=== PATIENT | male | born 1960 | race African-American/Black ===

== ENCOUNTER 2018-05-20 23:21 | Emergency (ER) | payer MEDICAID, OTHER ==
[~2018-05-20] VITALS: Ht 167.6 cm; Wt 77.0 kg
[2018-05-20] MEDS ORDERED: SODIUM CHLORIDE 0.9% 1,000 ML IV ONE (23:47)
[2018-05-21 00:32] LABS: BASOPHILS % 0.1 % (0.0-2.0); EOSINOPHILS % 0.7 % (0.0-5.0); HEMOGLOBIN. 12.2 g/dL (14.0-18.0); LYMPHOCYTES % 25.7 % (20.0-50.0); MEAN CORPUSCULAR HEMOGLOBIN 30.9 pg (28.0-32.0); MEAN CORPUSCULAR VOLUME 89.1 fL (80.0-94.0); MONOCYTES % 2.3 % (2.0-8.0); NEUTROPHILS % 71.2 % (40.0-76.0); PLATELET 265 x1000/uL (130-400); RED BLOOD CELL COUNT 3.93 mill/uL (4.7-6.1)
[2018-05-21 00:40] LABS: CHLORIDE 95 mEq/L (98-107)
[2018-05-21 00:49] LABS: CREATINE KINASE 70 IU/L (39-308)
[2018-05-21 00:52] LABS: BETA HYDROXYBUTYRATE 0.9 mMol/L (0.0-0.3)
[2018-05-21] MEDS ORDERED: SODIUM CHLORIDE 0.9% 1000ML BAG (SEPSIS BOLUS) IV NR (01:00)
[2018-05-21 01:06] LABS: ETHANOL BLOOD 306 mg/dL
[2018-05-21 01:51] LABS: *AMPHETAMINES SCREEN URINE NEGATIVE (NEGATIVE); *BARBITURATES SCREEN URINE NEGATIVE (NEGATIVE); *BENZODIAZEPINES SCREEN URINE NEGATIVE (NEGATIVE); *COCAINE SCREEN URINE NEGATIVE (NEGATIVE); METHADONE URINE SCREEN NEGATIVE (NEGATIVE)
[2018-05-21 01:52] LABS: CANNABINOID URINE SCREEN NEGATIVE (NEGATIVE); OPIATES URINE SCREEN NEGATIVE (NEGATIVE); PHENCYCLIDINE URINE SCREEN NEGATIVE (NEGATIVE)
[2018-05-21 02:00] LABS: CLARITY URINE CLEAR (CLEAR); COLOR URINE YELLOW (YELLOW); KETONES URINE 1+ (NEGATIVE); LEUKOCYTE ESTERASE URINE NEGATIVE (NEGATIVE); NITRITE URINE NEGATIVE (NEGATIVE); OCCULT BLOOD URINE NEGATIVE (NEGATIVE); PH URINE 5.5 (4.5-8.0); PROTEIN URINE NEGATIVE (NEGATIVE); SPECIFIC GRAVITY URINE 1.014 (1.005-1.030); UROBILINOGEN URINE 0.2 E.U./dL (0.2-1.0)
[2018-05-21] MEDS ORDERED: SODIUM CHLORIDE 0.9% 1,000 ML IV ONE ×2 (04:00)
[2018-05-21 07:30] VITALS: BP 123/63
== END 2018-05-21 07:51 | disposition home or self-care (01) ==
LOC: ER 23:21
DX: F10.129 Alcohol abuse with intoxication, unspecified (principal); Y90.8 Blood alcohol level of 240 mg/100 ml or more; E11.65 Type 2 diabetes mellitus with hyperglycemia; E86.0 Dehydration; I10 Essential (primary) hypertension; R74.0 Nonspecific elevation of levels of transaminase and lactic acid dehydrogenase [LDH]
CPT/HCPCS: 36415; 70450; 71045; 80053; 80305; 81003; 82010; 82550; 83605; 85025; 87040; 87086; 93005; 96360; 96361; 99284; G0482; J7030

== ENCOUNTER 2018-05-28 09:59 | Inpatient (IN) | payer OTHER ==
[~2018-05-28] VITALS: Ht 165.1 cm; Wt 60.5 kg
[2018-05-28] VITALS (15 sets, daily range): BP systolic 120–154; BP diastolic 56–78
[2018-05-28] MEDS ORDERED: SODIUM CHLORIDE 0.9% 1,000 ML IV ONE ×2 (11:05→11:58)
[2018-05-28 11:27] LABS: CHLORIDE 71 mEq/L (98-107)
[2018-05-28 11:28] LABS: HEMATOCRIT. 30.8 % (42.0-52.0); HEMOGLOBIN. 9.7 g/dL (14.0-18.0); MEAN CORPUSCULAR HEMOGLOBIN 30.9 pg (28.0-32.0); MEAN CORPUSCULAR VOLUME 98.5 fL (80.0-94.0); PLATELET 207 x1000/uL (130-400); RED BLOOD CELL COUNT 3.13 mill/uL (4.7-6.1); RED CELL DISTRIBUTION WIDTH 14.4 % (11.6-14.6)
[2018-05-28 11:31] LABS: ETHANOL BLOOD < 10 mg/dL
[2018-05-28 12:00] LABS: BG BASE EXCESS -27.4 mmol/L (-2.0-2.0); BG CARBOXYHEMOGLOBIN 0.1 % (0.5-1.5); BG DEOXYHEMOGLOBIN 2.1 % (0.0-5.0); BG FRACTION INSPIRED OXYGEN 21; BG HCO3 ACT 2.9 mmol/L (22.0-26.0); BG METHEMOGLOBIN 0.1 % (0.0-1.5); BG OXYGEN SATURATION 97.9 % (92.0-98.5); BG OXYHEMOGLOBIN 97.7 % (94.0-97.0); BG PCO2 13.3 mmHg (35.0-45.0); BG PO2 152.9 mmHg (75.0-100.0); BG SAMPLE SITE RIGHT RADIAL; BG TOTAL HEMOGLOBIN 9.9 g/dL (12.0-18.0); BG VENT MODE ROOM AIR
[2018-05-28] MEDS ORDERED: SODIUM BICARBONATE 8.4% 1 MEQ/ML 50ML SYR IV ONE (12:00)
[2018-05-28] MEDS ORDERED: INSULIN REGULAR (DRIP) 100 UNITS in SODIUM CHLORIDE 0.9% 99 ML IV SCH ×3 (12:00→15:30)
[2018-05-28 12:04] LABS: PLATELET ESTIMATE NORMAL
[2018-05-28 12:18] LABS: BETA HYDROXYBUTYRATE 13.8 mMol/L (0.0-0.3)
[2018-05-28] MEDS ORDERED: PIPERACILLIN/TAZOBACTAM 3.375GM/50ML PREMIX IV ONE (13:00)
[2018-05-28] MEDS ORDERED: VANCOMYCIN 1 G PREMIX 200 ML IV SCH (13:00)
[2018-05-28] MEDS ORDERED: PIPERACILLIN/TAZ 3.375G PREMIX 50 ML IV ONE (13:15)
[2018-05-28] MEDS ORDERED: SODIUM CHLORIDE 0.9% 1,000 ML IV SCH (13:50)
[2018-05-28] MEDS ORDERED: ONDANSETRON HCL 4MG/2ML INJ IV PRN (14:00)
[2018-05-28] MEDS ORDERED: IPRATROPIUM/ALBUTEROL 0.5-3(2.5)MG/3ML NEB INH PRN (14:00)
[2018-05-28] MEDS ORDERED: INSULIN REGULAR (DRIP) 100 UNITS in SODIUM CHLORIDE 0.9% 100 ML IV SCH (14:00)
[2018-05-28 14:25] LABS: PHOSPHORUS 7.5 mg/dL (2.5-4.9)
[2018-05-28 15:14] LABS: CLARITY URINE CLEAR (CLEAR); COLOR URINE YELLOW (YELLOW); KETONES URINE 3+ (NEGATIVE); LEUKOCYTE ESTERASE URINE NEGATIVE (NEGATIVE); NITRITE URINE NEGATIVE (NEGATIVE); OCCULT BLOOD URINE 2+ (NEGATIVE); PROTEIN URINE TRACE (NEGATIVE); SPECIFIC GRAVITY URINE 1.019 (1.005-1.030); UROBILINOGEN URINE 0.2 E.U./dL (0.2-1.0)
[2018-05-28] MEDS ORDERED: DEXTROSE 50% WATER 50ML SYRINGE IV PRN (15:15)
[2018-05-28 15:36] LABS: METHADONE URINE SCREEN NEGATIVE (NEGATIVE); OPIATES URINE SCREEN NEGATIVE (NEGATIVE)
[2018-05-28 15:37] LABS: *AMPHETAMINES SCREEN URINE NEGATIVE (NEGATIVE); *BARBITURATES SCREEN URINE NEGATIVE (NEGATIVE); *BENZODIAZEPINES SCREEN URINE NEGATIVE (NEGATIVE); *COCAINE SCREEN URINE NEGATIVE (NEGATIVE); CANNABINOID URINE SCREEN NEGATIVE (NEGATIVE); PHENCYCLIDINE URINE SCREEN NEGATIVE (NEGATIVE)
[2018-05-28] MEDS: BLOOD SUGAR DIAGNOSTIC STRIP TEST SCH ×9 (16:00→23:57)
[2018-05-28] MEDS ORDERED: ENOXAPARIN 40MG/0.4ML SYR SUBCUT SCH (16:00)
[2018-05-28] MEDS ORDERED: FERR325T6 MT (20:00)
[2018-05-28] MEDS ORDERED: AM500 MT (20:00)
[2018-05-28] MEDS ORDERED: PANTOPRAZOLE SODIUM 40 MG/VIAL IV NR (20:00)
[2018-05-28] MEDS ORDERED: METF-416 MT (20:00)
[2018-05-28] MEDS ORDERED: HYDR10TA34 MT (20:00)
[2018-05-28] MEDS ORDERED: LISI-186 MT (20:00)
[2018-05-28] MEDS ORDERED: DOCU-150 MT (20:00)
[2018-05-28] MEDS ORDERED: DEXT 5%/0.9% NACL 1,000 ML IV SCH (20:00)
[2018-05-28] MEDS ORDERED: NAPR-681 MT (20:00)
[2018-05-28] MEDS ORDERED: HYDR12.529 MT (20:00)
[2018-05-28 21:03] LABS: CHLORIDE 98 mEq/L (98-107)
[2018-05-28 21:11] LABS: CREATINE KINASE 195 IU/L (39-308)
[2018-05-28 21:16] LABS: CREATINE KINASE MB FRACTION 7.9 ng/mL (0.5-3.6)
[2018-05-28] MEDS ORDERED: POTASSIUM CHLORIDE INJ 40 MEQ in DEXT 5% WATER 250 ML IV NR (22:00)
[2018-05-28] MEDS ORDERED: THIAMINE HCL 100 MG, FOLIC ACID 1 MG, MVI, ADULT NO.1 10 ML in DEXT 5%/0.9% NACL 1,000 ML IV SCH ×4 (22:00)
[2018-05-29] VITALS (29 sets, daily range): BP systolic 108–158; BP diastolic 50–82
[2018-05-29 00:59] LABS: CHLORIDE 103 mEq/L (98-107)
[2018-05-29] MEDS: BLOOD SUGAR DIAGNOSTIC STRIP TEST SCH ×11 (01:00→23:46)
[2018-05-29 01:01] LABS: CREATINE KINASE MB FRACTION 5.7 ng/mL (0.5-3.6)
[2018-05-29] MEDS: DEXTROSE 50% WATER 50ML SYRINGE IV PRN ×2 (04:04→05:56)
[2018-05-29] MEDS ORDERED: POTASSIUM CHLORIDE INJ 20 MEQ in DEXT 5%/0.9% NACL 1,000 ML IV SCH (05:00)
[2018-05-29] MEDS ORDERED: DEXT 5%/0.45% NACL KCL 20MEQ/L 1,000 ML IV SCH (05:00)
[2018-05-29 05:15] LABS: MEAN CORPUSCULAR VOLUME 84.3 fL (80.0-94.0); MEAN PLATELET VOLUME 6.9 fl (7.4-10.4); PLATELET 141 x1000/uL (130-400); RED BLOOD CELL COUNT 2.33 mill/uL (4.7-6.1); RED CELL DISTRIBUTION WIDTH 14.2 % (11.6-14.6)
[2018-05-29 05:33] LABS: CHLORIDE 107 mEq/L (98-107)
[2018-05-29 05:43] LABS: LDL CHOLESTEROL 27 mg/dL (5-100)
[2018-05-29 05:44] LABS: HDL CHOLESTEROL 65 mg/dL (40-59)
[2018-05-29 06:00] LABS: PHOSPHORUS 0.3 mg/dL (2.5-4.9)
[2018-05-29 07:24] LABS: MEAN CORPUSCULAR HEMOGLOBIN 30.3 pg (28.0-32.0)
[2018-05-29 07:30] LABS: HEMATOCRIT. 19.6 % (42.0-52.0)
[2018-05-29] MEDS ORDERED: POTASSIUM PHOS,M-BASIC-D-BASIC 30 MMOL in SODIUM CHLORIDE 0.9% 500 ML IV SCH ×2 (07:30→19:30)
[2018-05-29] MEDS ORDERED: DEXTROSE 50% WATER 50ML SYRINGE IV PRN (07:45)
[2018-05-29 08:45] LABS: CHLORIDE 107 mEq/L (98-107)
[2018-05-29] MEDS ORDERED: INSULIN GLARGINE UD 100 UNITS/ML SYR SUBCUT SCH (10:00)
[2018-05-29 10:10] LABS: PLATELET ESTIMATE NORMAL
[2018-05-29] MEDS: PANTOPRAZOLE SODIUM 40 MG/VIAL IV SCH (10:10)
[2018-05-29] MEDS ORDERED: POTASSIUM CHLORIDE 20MEQ TABLET SR PO SCH ×3 (11:15→19:30)
[2018-05-29] MEDS: INSULIN LISPRO 100 UNITS/ML SUBCUT SCH ×4 (12:01→23:47)
[2018-05-29] MEDS ORDERED: CLONIDINE 0.1MG TABLET PO PRN (13:00)
[2018-05-29 16:27] LABS: PHOSPHORUS 0.6 mg/dL (2.5-4.9)
[2018-05-29 16:36] LABS: HEMATOCRIT 20.3 % (42.0-52.0); HEMOGLOBIN 7.4 g/dL (14.0-18.0)
[2018-05-29] MEDS ORDERED: THIAMINE HCL 100MG TABLET PO NR (17:00)
[2018-05-29] MEDS: FERROUS SULFATE 325MG TABLET PO SCH (17:16)
[2018-05-29] MEDS: MULTIVITAMINS,THER W-MINERALS TABLET PO SCH (17:16)
[2018-05-29] MEDS: DOCUSATE SODIUM 100MG CAPSULE PO SCH (17:16)
[2018-05-29] MEDS: FOLIC ACID 1MG TABLET PO SCH (17:17)
[2018-05-29] MEDS ORDERED: POTASSIUM PHOS,M-BASIC-D-BASIC 30 MMOL in DEXT 5% WATER 500 ML IV ONE (19:30)
[2018-05-30] VITALS (10 sets, daily range): BP systolic 106–130; BP diastolic 51–67
[2018-05-30] MEDS: BLOOD SUGAR DIAGNOSTIC STRIP TEST SCH ×5 (03:49→20:14)
[2018-05-30] MEDS: INSULIN LISPRO 100 UNITS/ML SUBCUT SCH ×5 (03:51→20:31)
[2018-05-30 06:56] LABS: CHLORIDE 107 mEq/L (98-107)
[2018-05-30 07:02] LABS: PHOSPHORUS 1.1 mg/dL (2.5-4.9)
[2018-05-30] MEDS: THIAMINE HCL 100MG TABLET PO SCH (08:06)
[2018-05-30] MEDS: MULTIVITAMINS,THER W-MINERALS TABLET PO SCH (08:06)
[2018-05-30] MEDS: DOCUSATE SODIUM 100MG CAPSULE PO SCH ×2 (08:06→16:54)
[2018-05-30] MEDS: FOLIC ACID 1MG TABLET PO SCH (08:06)
[2018-05-30] MEDS: FERROUS SULFATE 325MG TABLET PO SCH ×3 (08:06→16:54)
[2018-05-30] MEDS: PANTOPRAZOLE SODIUM 40 MG/VIAL IV SCH ×2 (08:07→20:26)
[2018-05-30 08:25] LABS: MEAN CORPUSCULAR HEMOGLOBIN 30.8 pg (28.0-32.0); MEAN CORPUSCULAR VOLUME 84.6 fL (80.0-94.0); MEAN PLATELET VOLUME 7.3 fl (7.4-10.4); PLATELET 135 x1000/uL (130-400); RED BLOOD CELL COUNT 2.22 mill/uL (4.7-6.1); RED CELL DISTRIBUTION WIDTH 15.1 % (11.6-14.6)
[2018-05-30 08:39] LABS: HEMOGLOBIN. 6.8 g/dL (14.0-18.0)
[2018-05-30 08:40] LABS: HEMATOCRIT. 18.8 % (42.0-52.0)
[2018-05-30] MEDS: INSULIN GLARGINE UD 100 UNITS/ML SYR SUBCUT SCH ×2 (09:25→21:53)
[2018-05-30] MEDS ORDERED: POTASSIUM PHOS,M-BASIC-D-BASIC 30 MMOL in DEXT 5% WATER 500 ML IV NR (09:30)
[2018-05-30 16:05] LABS: PLATELET ESTIMATE NORMAL
[2018-05-30 23:38] LABS: HEMATOCRIT 21.1 % (42.0-52.0); HEMOGLOBIN 7.4 g/dL (14.0-18.0)
[2018-05-30 23:55] LABS: PHOSPHORUS 2.7 mg/dL (2.5-4.9)
[2018-05-31] VITALS (7 sets, daily range): BP systolic 110–116; BP diastolic 51–67
[2018-05-31] MEDS: LORAZEPAM 2MG/ML CPJ IV PRN ×2 (00:27→23:21)
[2018-05-31] MEDS: BLOOD SUGAR DIAGNOSTIC STRIP TEST SCH ×7 (00:33→23:23)
[2018-05-31] MEDS: INSULIN LISPRO 100 UNITS/ML SUBCUT SCH ×7 (04:00→23:33)
[2018-05-31 06:42] LABS: BASOPHILS % 0.1 % (0.0-2.0); EOSINOPHILS % 0.4 % (0.0-5.0); HEMOGLOBIN. 7.4 g/dL (14.0-18.0); LYMPHOCYTES % 9.5 % (20.0-50.0); MEAN CORPUSCULAR HEMOGLOBIN 30.8 pg (28.0-32.0); MEAN CORPUSCULAR VOLUME 85.6 fL (80.0-94.0); MEAN PLATELET VOLUME 7.3 fl (7.4-10.4); PLATELET 176 x1000/uL (130-400); RED BLOOD CELL COUNT 2.41 mill/uL (4.7-6.1); RED CELL DISTRIBUTION WIDTH 14.7 % (11.6-14.6)
[2018-05-31] MEDS: FERROUS SULFATE 325MG TABLET PO SCH ×3 (07:40→18:24)
[2018-05-31 07:46] LABS: HEMATOCRIT. 20.7 % (42.0-52.0)
[2018-05-31 08:13] LABS: CHLORIDE 104 mEq/L (98-107)
[2018-05-31] MEDS: DOCUSATE SODIUM 100MG CAPSULE PO SCH ×2 (09:00→18:24)
[2018-05-31] MEDS: MULTIVITAMINS,THER W-MINERALS TABLET PO SCH (09:00)
[2018-05-31] MEDS: FOLIC ACID 1MG TABLET PO SCH (09:00)
[2018-05-31] MEDS: THIAMINE HCL 100MG TABLET PO SCH (09:00)
[2018-05-31] MEDS: PANTOPRAZOLE SODIUM 40 MG/VIAL IV SCH ×2 (09:00→20:02)
[2018-05-31] MEDS: INSULIN GLARGINE UD 100 UNITS/ML SYR SUBCUT SCH ×2 (09:50→21:08)
[2018-05-31] MEDS ORDERED: POTASSIUM CHLORIDE INJ 40 MEQ in DEXT 5% WATER 250 ML IV NR ×2 (12:00→16:00)
[2018-05-31 15:30] LABS: CLARITY URINE CLEAR (CLEAR); COLOR URINE YELLOW (YELLOW); KETONES URINE TRACE (NEGATIVE); LEUKOCYTE ESTERASE URINE 1+ (NEGATIVE); NITRITE URINE POSITIVE (NEGATIVE); OCCULT BLOOD URINE 1+ (NEGATIVE); PH URINE 6.5 (4.5-8.0); PROTEIN URINE NEGATIVE (NEGATIVE); SPECIFIC GRAVITY URINE 1.013 (1.005-1.030); UROBILINOGEN URINE 0.2 E.U./dL (0.2-1.0)
[2018-05-31 15:47] LABS: HEMATOCRIT 21.2 % (42.0-52.0); HEMOGLOBIN 7.6 g/dL (14.0-18.0)
[2018-05-31] MEDS ORDERED: DIPHENHYDRAMINE 50MG/ML VIAL ONE (16:04)
[2018-05-31] MEDS ORDERED: MIDAZOLAM HCL 2 MG/2 ML VIAL ONE (16:04)
[2018-05-31] MEDS ORDERED: PROPOFOL 200MG/20ML VIAL IV ONE (16:04)
[2018-05-31] MEDS ORDERED: FENTANYL CITRATE/PF 50MCG/ML 2ML VIAL ONE (16:04)
[2018-05-31] MEDS ORDERED: SIMETHICONE 40 MG/0.6 ML 30ML ONE (16:06)
[2018-05-31] MEDS ORDERED: OMEPRAZOLE 20MG CAPSULE EXTENDED RELEASE PO NR (16:30)
[2018-05-31] MEDS: CEFTRIAXONE 1,000 MG in DEXTROSE 5% WATER 50 ML IV SCH (18:27)
[2018-06-01] VITALS: BP 121/62
[2018-06-01 04:00] VITALS: BP 105/65
[2018-06-01] MEDS: BLOOD SUGAR DIAGNOSTIC STRIP TEST SCH ×5 (04:00→20:37)
[2018-06-01] MEDS: INSULIN LISPRO 100 UNITS/ML SUBCUT SCH ×5 (04:00→20:00)
[2018-06-01] MEDS: OMEPRAZOLE 20MG CAPSULE EXTENDED RELEASE PO SCH (06:46)
[2018-06-01 06:50] LABS: BASOPHILS % 0.2 % (0.0-2.0); EOSINOPHILS % 0.5 % (0.0-5.0); HEMATOCRIT. 22.8 % (42.0-52.0); HEMOGLOBIN. 8.1 g/dL (14.0-18.0); LYMPHOCYTES % 13.4 % (20.0-50.0); MEAN CORPUSCULAR HEMOGLOBIN 30.7 pg (28.0-32.0); MEAN CORPUSCULAR VOLUME 86.8 fL (80.0-94.0); MEAN PLATELET VOLUME 6.9 fl (7.4-10.4); MONOCYTES % 14.4 % (2.0-8.0); NEUTROPHILS % 71.5 % (40.0-76.0); PLATELET 259 x1000/uL (130-400); RED BLOOD CELL COUNT 2.63 mill/uL (4.7-6.1); RED CELL DISTRIBUTION WIDTH 14.5 % (11.6-14.6)
[2018-06-01 07:11] LABS: CHLORIDE 103 mEq/L (98-107)
[2018-06-01 08:00] VITALS: BP 103/50
[2018-06-01] MEDS: INSULIN GLARGINE UD 100 UNITS/ML SYR SUBCUT SCH ×2 (09:05→22:53)
[2018-06-01] MEDS: DOCUSATE SODIUM 100MG CAPSULE PO SCH ×2 (09:06→18:05)
[2018-06-01] MEDS: FERROUS SULFATE 325MG TABLET PO SCH ×3 (09:06→18:05)
[2018-06-01] MEDS: FOLIC ACID 1MG TABLET PO SCH (09:06)
[2018-06-01] MEDS: MULTIVITAMINS,THER W-MINERALS TABLET PO SCH (09:06)
[2018-06-01] MEDS: THIAMINE HCL 100MG TABLET PO SCH (09:06)
[2018-06-01] MEDS: PANTOPRAZOLE SODIUM 40 MG/VIAL IV SCH (09:06)
[2018-06-01 12:00] VITALS: BP 105/57
[2018-06-01] MEDS ORDERED: LEVO500T89 MT (14:16)
[2018-06-01] MEDS ORDERED: LANTUSUD SUBCUT (14:16)
[2018-06-01] MEDS ORDERED: THIA100T72 PO (14:16)
[2018-06-01] MEDS ORDERED: OMEP20CA10 PO (14:16)
[2018-06-01] MEDS ORDERED: FOLI-43 PO (14:16)
[2018-06-01 16:00] VITALS: BP 115/67
[2018-06-01] MEDS: CEFTRIAXONE 1,000 MG in DEXTROSE 5% WATER 50 ML IV SCH (18:06)
[2018-06-01 20:00] VITALS: BP 122/57
[2018-06-02] VITALS: BP 110/51
[2018-06-02] MEDS: LORAZEPAM 2MG/ML CPJ IV PRN (01:53)
[2018-06-02 04:00] VITALS: BP 116/80
[2018-06-02] MEDS: BLOOD SUGAR DIAGNOSTIC STRIP TEST SCH ×2 (04:00)
[2018-06-02] MEDS: OMEPRAZOLE 20MG CAPSULE EXTENDED RELEASE PO SCH (06:49)
[2018-06-02] MEDS: INSULIN LISPRO 100 UNITS/ML SUBCUT SCH ×2 (06:58)
[2018-06-02 08:00] VITALS: BP 110/55
== END 2018-06-02 09:13 | disposition home or self-care (01) | DRG 720 ==
LOC: ER 09:59 → MICUNO 12:30 → EDBEDREQSVC 12:34 → EDBEDREQTM 12:34 → EDBEDREQ 12:34 → ENRESERV 13:59 → 8WST 05-29 16:12
PROVIDERS: ADMIT Internal Medicine; ATTEND Internal Medicine
PROC: 30233N1 Transfusion of Nonautologous Red Blood Cells into Peripheral Vein, Percutaneous Approach (ICD-10-PCS; 2018-05-30)
PROC: 0DB58ZX Excision of Esophagus, Via Natural or Artificial Opening Endoscopic, Diagnostic (ICD-10-PCS; principal; 2018-05-31)
PROC: 0DB68ZX Excision of Stomach, Via Natural or Artificial Opening Endoscopic, Diagnostic (ICD-10-PCS; 2018-05-31)
DX: A41.9 Sepsis, unspecified organism (principal); E11.10 Type 2 diabetes mellitus with ketoacidosis without coma; K22.11 Ulcer of esophagus with bleeding; K85.20 Alcohol induced acute pancreatitis without necrosis or infection; D62 Acute posthemorrhagic anemia; E44.1 Mild protein-calorie malnutrition; E87.1 Hypo-osmolality and hyponatremia; E87.8 Other disorders of electrolyte and fluid balance, not elsewhere classified; I48.92 Unspecified atrial flutter; F10.239 Alcohol dependence with withdrawal, unspecified; D53.9 Nutritional anemia, unspecified; E87.6 Hypokalemia; R39.2 Extrarenal uremia; E86.9 Volume depletion, unspecified; F17.210 Nicotine dependence, cigarettes, uncomplicated; I10 Essential (primary) hypertension; K29.80 Duodenitis without bleeding; N39.0 Urinary tract infection, site not specified; Z68.22 Body mass index [BMI] 22.0-22.9, adult
CPT/HCPCS: 36415; 36600; 71045; 76700; 80048; 80061; 80305; 82010; 82270; 82375; 82550; 82553; 82805; 82962; 83036; 83540; 83550; 83605; 83735; 84100; 84132; 84145; 84443; 84484; 85014; 85018; 85044; 86850; 86900; 86920; 88305; 88312; 88313; 93005; 93306; 93970; 96361; 96365; 96375; 99291; A6261; C1893; C9113; G0482; J0696; J1200; J1650; J1815; J2060; J2250; J2543; J2704; J3010; J3370; J3411; J3480; J3490; J7030; J7040; J7042; J7050; J7060; P9016; A4315

== ENCOUNTER 2018-07-21 17:30 | Emergency (ER) | payer OTHER ==
[~2018-07-21] VITALS: Ht 172.7 cm; Wt 88.0 kg
[~2018-07-21 17:30] MED LIST: DOCU-150 MT; FERR325T6 MT; FOLI-43 PO; HYDR10TA34 MT; LANTUSUD SUBCUT; LEVO500T89 MT; OMEP20CA10 PO; THIA100T72 PO
[2018-07-22 01:08] LABS: BASOPHILS % 0.6 % (0.0-2.0); EOSINOPHILS % 0.5 % (0.0-5.0); HEMATOCRIT. 25.5 % (42.0-52.0); HEMOGLOBIN. 8.6 g/dL (14.0-18.0); LYMPHOCYTES % 10.3 % (20.0-50.0); MEAN CORPUSCULAR HEMOGLOBIN 27.7 pg (28.0-32.0); MEAN CORPUSCULAR VOLUME 82.6 fL (80.0-94.0); MEAN PLATELET VOLUME 6.7 fl (7.4-10.4); MONOCYTES % 5.4 % (2.0-8.0); NEUTROPHILS % 83.2 % (40.0-76.0); PLATELET 732 x1000/uL (130-400); RED BLOOD CELL COUNT 3.09 mill/uL (4.7-6.1)
[2018-07-22 01:14] LABS: CHLORIDE 92 mEq/L (98-107)
[2018-07-22 01:19] LABS: D-DIMER 0.78 mg/L FEU (<0.50); PARTIAL THROMBOPLASTIN TIME 25.7 sec (23.4-31.0); PROTHROMBIN TIME 10.3 sec (9.1-11.1)
[2018-07-22 01:26] LABS: BETA HYDROXYBUTYRATE 0.1 mMol/L (0.0-0.3)
[2018-07-22] MEDS ORDERED: CALCIUM CHLORIDE 1GM/10ML SYR IV SCH (02:00)
[2018-07-22] MEDS ORDERED: INSULIN REGULAR (HUMULIN R) 300UNITS/3ML IV SCH (02:00)
[2018-07-22] MEDS ORDERED: SODIUM BICARBONATE 8.4% 1 MEQ/ML 50ML SYR IV SCH (02:00)
[2018-07-22] MEDS ORDERED: SODIUM CHLORIDE 0.9% 1000ML BAG (SEPSIS BOLUS) IV ONE (02:15)
[2018-07-22] MEDS ORDERED: IOHEXOL-350 100 ML BOTTLE ONE (04:07)
[2018-07-22 06:42] VITALS: BP 148/82
== END 2018-07-22 06:45 | disposition home or self-care (01) ==
LOC: ER 17:30
DX: C34.90 Malignant neoplasm of unspecified part of unspecified bronchus or lung (principal); E11.9 Type 2 diabetes mellitus without complications; I10 Essential (primary) hypertension; Z79.4 Long term (current) use of insulin; Z79.899 Other long term (current) drug therapy
CPT/HCPCS: 36415; 71045; 71275; 80053; 82010; 82962; 84132; 84439; 84443; 85025; 85379; 85610; 85730; 93005; 96361; 96374; 96375; 99291; J1815; J3490; J7030; Q9967

== ENCOUNTER 2021-12-31 19:02 | Inpatient (IN) | payer OTHER ==
[~2021-12-31] VITALS: Ht 165.1 cm; Wt 64.4 kg
[~2021-12-31 19:02] MED LIST changes: +CALC667C MT; +CARV25TA47 PO; +DILT60TA35 PO; -FERR325T6 MT; +FERR325T6 PO; -LEVO500T89 MT; -OMEP20CA10 PO; +SUCR1TAB30 PO; +TAMS-11 PO
[2021-12-31] MEDS ORDERED: ONDANSETRON HCL 4MG/2ML INJ IV STA (19:32)
[2021-12-31] MEDS ORDERED: SODIUM CHLORIDE 0.9% 1,000 ML IV ONE (19:45)
[2021-12-31 20:01] LABS: HEMATOCRIT. 31.4 % (42.0-52.0); HEMOGLOBIN. 10.5 g/dL (14.0-18.0); MEAN CORPUSCULAR HEMOGLOBIN 32.9 pg (28.0-32.0); MEAN CORPUSCULAR VOLUME 98.6 fL (80.0-94.0); PLATELET 150 x1000/uL (130-400); RED BLOOD CELL COUNT 3.19 mill/uL (4.7-6.1); RED CELL DISTRIBUTION WIDTH 14.4 % (11.6-14.6)
[2021-12-31 20:11] LABS: INR 1.1; PROTHROMBIN TIME 11.5 sec (9.6-11.0)
[2021-12-31 20:12] LABS: CHLORIDE 81 mEq/L (98-107)
[2021-12-31 20:20] LABS: ETHANOL BLOOD < 10 mg/dL
[2021-12-31 21:53] LABS: PLATELET ESTIMATE NORMAL
[2021-12-31] MEDS: ONDANSETRON HCL 4MG/2ML INJ IV NR (22:58)
[2021-12-31 23:06] LABS: CLARITY URINE CLEAR (CLEAR); COLOR URINE YELLOW (YELLOW); KETONES URINE 1+ (NEGATIVE); LEUKOCYTE ESTERASE URINE TRACE (NEGATIVE); NITRITE URINE NEGATIVE (NEGATIVE); OCCULT BLOOD URINE NEGATIVE (NEGATIVE); PH URINE 5.5 (4.5-8.0); PROTEIN URINE 1+ (NEGATIVE); SPECIFIC GRAVITY URINE 1.015 (1.005-1.030); UROBILINOGEN URINE 0.2 E.U./dL (0.2-1.0)
[2021-12-31 23:23] LABS: *AMPHETAMINES SCREEN URINE NEGATIVE (NEGATIVE); *BARBITURATES SCREEN URINE NEGATIVE (NEGATIVE); *BENZODIAZEPINES SCREEN URINE NEGATIVE (NEGATIVE); *COCAINE SCREEN URINE NEGATIVE (NEGATIVE); CANNABINOID URINE SCREEN NEGATIVE (NEGATIVE); METHADONE URINE SCREEN NEGATIVE (NEGATIVE); OPIATES URINE SCREEN NEGATIVE (NEGATIVE); PHENCYCLIDINE URINE SCREEN NEGATIVE (NEGATIVE)
[2022-01-01] VITALS (9 sets, daily range): BP systolic 124–146; BP diastolic 61–87
[2022-01-01] MEDS ORDERED: PANTOPRAZOLE SODIUM 40 MG/VIAL IV ONE (00:30)
[2022-01-01 00:45] LABS: HEMATOCRIT 29.2 % (42.0-52.0); HEMOGLOBIN 9.8 g/dL (14.0-18.0); MEAN CORPUSCULAR HEMOGLOBIN 33.3 pg (28.0-32.0); MEAN CORPUSCULAR VOLUME 98.9 fL (80.0-94.0); PLATELET 136 x1000/uL (130-400); RED BLOOD CELL COUNT 2.95 mill/uL (4.7-6.1); RED CELL DISTRIBUTION WIDTH 14.4 % (11.6-14.6)
[2022-01-01] MEDS: ONDANSETRON HCL 4MG/2ML INJ IV NR (02:33)
[2022-01-01] MEDS ORDERED: GUAIFENESIN 200MG/10ML SUGAR FREE UDC PO PRN (08:45)
[2022-01-01] MEDS ORDERED: DIPHENHYDRAMINE 50MG/ML VIAL IV PRN (08:45)
[2022-01-01] MEDS ORDERED: CLONIDINE 0.1MG TABLET PO PRN (08:45)
[2022-01-01] MEDS ORDERED: HYDROCODONE/ACETAMINOPHEN 5/325MG TABLET PO PRN (08:45)
[2022-01-01] MEDS ORDERED: ONDANSETRON HCL 4MG/2ML INJ IV PRN (08:45)
[2022-01-01] MEDS ORDERED: MAGNESIUM/ALUMINUM HYDROXIDE/SIMETHICONE 30ML UDC PO PRN (08:45)
[2022-01-01] MEDS ORDERED: IPRATROPIUM/ALBUTEROL 0.5-3(2.5)MG/3ML NEB NEB PRN (08:45)
[2022-01-01] MEDS ORDERED: NA PHOS,M-B/NA PHOS,DI-BA ENEMA 118ML PR PRN (08:45)
[2022-01-01] MEDS ORDERED: MORPHINE SULFATE 2 MG/ML CPJ (NOT FOR IM USE) IV PRN (08:45)
[2022-01-01] MEDS ORDERED: DOCUSATE SODIUM 100MG CAPSULE PO PRN (08:45)
[2022-01-01] MEDS ORDERED: AMIODARONE HCL 900 MG in DEXT 5% WATER 482 ML IV SCH (09:30)
[2022-01-01] MEDS ORDERED: NALOXONE HCL 0.4MG/ML VIAL IV PRN (09:30)
[2022-01-01] MEDS: AMIODARONE HCL 900 MG in DEXT 5% WATER 482 ML IV SCH (10:00)
[2022-01-01] MEDS ORDERED: DEXTROSE 50% WATER 50ML SYRINGE IV PRN (11:30)
[2022-01-01] MEDS: BLOOD SUGAR DIAGNOSTIC STRIP TEST SCH ×4 (11:51→21:00)
[2022-01-01] MEDS ORDERED: OCTREOTIDE 1,000 MCG in SODIUM CHLORIDE 0.9% 100 ML IV ONE (12:30)
[2022-01-01] MEDS: SUCRALFATE 1 G/10 ML UDC PO SCH ×4 (12:30→20:22)
[2022-01-01] MEDS: INSULIN LISPRO 100 UNITS/ML SUBCUT SCH ×4 (13:00→22:27)
[2022-01-01 15:19] LABS: HEMATOCRIT 33.1 % (42.0-52.0); HEMOGLOBIN 11.1 g/dL (14.0-18.0)
[2022-01-01 15:53] LABS: HEPATITIS B SURFACE ANTIGEN NEGATIVE
[2022-01-01 15:56] LABS: CREATINE KINASE 177 IU/L (39-308); CREATINE KINASE MB FRACTION 1.6 ng/mL (0.5-3.6)
[2022-01-01 15:59] LABS: T4 FREE 1.39 ng/dL (0.76-1.46)
[2022-01-01] MEDS: PANTOPRAZOLE SODIUM 40 MG/VIAL IV SCH (17:24)
[2022-01-01 20:03] LABS: HEMATOCRIT 29.8 % (42.0-52.0); HEMOGLOBIN 9.6 g/dL (14.0-18.0)
[2022-01-02] VITALS (12 sets, daily range): BP systolic 107–166; BP diastolic 49–82
[2022-01-02 00:25] LABS: CREATINE KINASE MB FRACTION 1.4 ng/mL (0.5-3.6)
[2022-01-02 01:02] LABS: HEMATOCRIT 29.2 % (42.0-52.0); HEMOGLOBIN 9.9 g/dL (14.0-18.0)
[2022-01-02 05:38] LABS: CHLORIDE 91 mEq/L (98-107)
[2022-01-02 05:46] LABS: CREATINE KINASE 125 IU/L (39-308); CREATINE KINASE MB FRACTION < 1.0 ng/mL (0.5-3.6)
[2022-01-02 06:18] LABS: BASOPHILS % 0.1 % (0.0-2.0); EOSINOPHILS % 0.7 % (0.0-5.0); HEMATOCRIT. 32.4 % (42.0-52.0); HEMOGLOBIN. 10.8 g/dL (14.0-18.0); LYMPHOCYTES % 10.7 % (20.0-50.0); MEAN CORPUSCULAR HEMOGLOBIN 33.9 pg (28.0-32.0); MEAN CORPUSCULAR VOLUME 101.8 fL (80.0-94.0); MEAN PLATELET VOLUME 7.9 fl (7.4-10.4); MONOCYTES % 6.3 % (2.0-8.0); NEUTROPHILS % 82.2 % (40.0-76.0); PLATELET 121 x1000/uL (130-400); RED BLOOD CELL COUNT 3.18 mill/uL (4.7-6.1); RED CELL DISTRIBUTION WIDTH 14.5 % (11.6-14.6)
[2022-01-02] MEDS: BLOOD SUGAR DIAGNOSTIC STRIP TEST SCH ×4 (06:43→20:58)
[2022-01-02] MEDS ORDERED: LIDOCAINE HCL 1% 10 MG/ML 10ML VIAL ONE (09:30)
[2022-01-02] MEDS: PANTOPRAZOLE SODIUM 40 MG/VIAL IV SCH ×2 (10:06→18:09)
[2022-01-02] MEDS: SUCRALFATE 1 G/10 ML UDC PO SCH ×4 (10:06→21:58)
[2022-01-02] MEDS: INSULIN LISPRO 100 UNITS/ML SUBCUT SCH ×4 (10:08→22:00)
[2022-01-02] MEDS ORDERED: POTASSIUM CHLORIDE 20MEQ TABLET SR PO NR (12:15)
[2022-01-02] MEDS: AMIODARONE HCL 900 MG in DEXT 5% WATER 482 ML IV SCH (12:56)
[2022-01-02 13:06] LABS: HEMATOCRIT 29.4 % (42.0-52.0); HEMOGLOBIN 10.1 g/dL (14.0-18.0)
[2022-01-02 19:26] LABS: HEMATOCRIT 30.3 % (42.0-52.0); HEMOGLOBIN 10.2 g/dL (14.0-18.0)
[2022-01-02] MEDS: AMIODARONE HCL 200 MG TABLET PO SCH (21:58)
[2022-01-03] VITALS (12 sets, daily range): BP systolic 124–150; BP diastolic 62–75
[2022-01-03 01:24] LABS: HEMATOCRIT 27.5 % (42.0-52.0); HEMOGLOBIN 9.2 g/dL (14.0-18.0)
[2022-01-03 06:37] LABS: BASOPHILS % 0.1 % (0.0-2.0); EOSINOPHILS % 1.4 % (0.0-5.0); HEMATOCRIT. 27.3 % (42.0-52.0); HEMOGLOBIN. 9.3 g/dL (14.0-18.0); LYMPHOCYTES % 17.9 % (20.0-50.0); MEAN CORPUSCULAR HEMOGLOBIN 33.3 pg (28.0-32.0); MEAN CORPUSCULAR VOLUME 97.6 fL (80.0-94.0); MEAN PLATELET VOLUME 7.6 fl (7.4-10.4); MONOCYTES % 7.8 % (2.0-8.0); NEUTROPHILS % 72.8 % (40.0-76.0); PLATELET 105 x1000/uL (130-400); RED CELL DISTRIBUTION WIDTH 13.7 % (11.6-14.6)
[2022-01-03 06:38] LABS: INR 1.1; PROTHROMBIN TIME 11.4 sec (9.6-11.0)
[2022-01-03 06:39] LABS: CHLORIDE 94 mEq/L (98-107)
[2022-01-03] MEDS: BLOOD SUGAR DIAGNOSTIC STRIP TEST SCH ×4 (06:53→21:20)
[2022-01-03] MEDS: SUCRALFATE 1 G/10 ML UDC PO SCH ×4 (08:53→21:20)
[2022-01-03] MEDS: INSULIN LISPRO 100 UNITS/ML SUBCUT SCH ×4 (08:54→21:35)
[2022-01-03] MEDS: PANTOPRAZOLE SODIUM 40 MG/VIAL IV SCH ×2 (08:54→17:21)
[2022-01-03] MEDS: AMIODARONE HCL 200 MG TABLET PO SCH ×2 (08:54→21:20)
[2022-01-03 12:31] LABS: HEMATOCRIT 30.2 % (42.0-52.0); HEMOGLOBIN 10.2 g/dL (14.0-18.0)
[2022-01-03] MEDS ORDERED: EPOETIN ALFA-EPBX 10,000 UNIT/ML VIAL SUBCUT SCH (21:00)
[2022-01-03 23:54] LABS: HEMATOCRIT 27.8 % (42.0-52.0); HEMOGLOBIN 9.5 g/dL (14.0-18.0)
[2022-01-04] VITALS (9 sets, daily range): BP systolic 124–156; BP diastolic 64–73
[2022-01-04] MEDS: SUCRALFATE 1 G/10 ML UDC PO SCH ×3 (07:08→17:37)
[2022-01-04 07:19] LABS: BASOPHILS % 0.3 % (0.0-2.0); EOSINOPHILS % 3.2 % (0.0-5.0); HEMATOCRIT. 27.8 % (42.0-52.0); HEMOGLOBIN. 9.6 g/dL (14.0-18.0); LYMPHOCYTES % 16.7 % (20.0-50.0); MEAN CORPUSCULAR HEMOGLOBIN 33.6 pg (28.0-32.0); MEAN CORPUSCULAR VOLUME 97.4 fL (80.0-94.0); MONOCYTES % 9.4 % (2.0-8.0); NEUTROPHILS % 70.4 % (40.0-76.0); RED BLOOD CELL COUNT 2.85 mill/uL (4.7-6.1); RED CELL DISTRIBUTION WIDTH 13.6 % (11.6-14.6)
[2022-01-04 07:25] LABS: PROTHROMBIN TIME 11.2 sec (9.6-11.0)
[2022-01-04] MEDS: BLOOD SUGAR DIAGNOSTIC STRIP TEST SCH ×3 (07:42→17:37)
[2022-01-04] MEDS: INSULIN LISPRO 100 UNITS/ML SUBCUT SCH ×3 (08:00→17:42)
[2022-01-04] MEDS ORDERED: HYDROMORPHONE HCL/PF 2MG/ML CPJ IV PRN (11:00)
[2022-01-04] MEDS ORDERED: ONDANSETRON HCL 4MG/2ML INJ IV PRN (11:00)
[2022-01-04] MEDS ORDERED: MEPERIDINE HCL/PF 25MG/ML CPJ IV PRN (11:00)
[2022-01-04] MEDS ORDERED: LABETALOL 5MG/ML SYR 20 MG/4 ML SYRINGE IV PRN (11:00)
[2022-01-04] MEDS: PANTOPRAZOLE SODIUM 40 MG/VIAL IV SCH ×2 (12:14→17:36)
[2022-01-04] MEDS: METOCLOPRAMIDE HCL 10MG/2ML VIAL IV SCH ×2 (12:14→17:37)
[2022-01-04] MEDS: AMIODARONE HCL 200 MG TABLET PO SCH (12:14)
[2022-01-04 13:08] LABS: HEMOGLOBIN 9.8 g/dL (14.0-18.0)
[2022-01-04 14:14] LABS: PLATELET 111 x1000/uL (130-400)
== END 2022-01-04 19:10 | disposition home or self-care (01) | DRG 242 ==
LOC: ER 19:02 → EDBEDREQ 23:01 → EDBEDREQTM 23:01 → MICUSO 01-01 05:08 → EDBEDREQDT 01-01 05:17 → EDBEDREQ 01-01 05:17 → EDBEDREQTM 01-01 05:17 → 5EST 01-01 11:30 → ENRESERV 01-01 23:18 → CMPBEDREQ 01-02 01:25
PROVIDERS: ADMIT Internal Medicine; ATTEND Internal Medicine
PROC: 5A1D70Z Performance of Urinary Filtration, Intermittent, Less than 6 Hours Per Day (ICD-10-PCS; 2022-01-01)
PROC: 02HV33Z Insertion of Infusion Device into Superior Vena Cava, Percutaneous Approach (ICD-10-PCS; principal; 2022-01-02)
PROC: B548ZZA Ultrasonography of Superior Vena Cava, Guidance (ICD-10-PCS; 2022-01-02)
PROC: 0DB68ZX Excision of Stomach, Via Natural or Artificial Opening Endoscopic, Diagnostic (ICD-10-PCS; 2022-01-04)
DX: K22.11 Ulcer of esophagus with bleeding (principal); J96.00 Acute respiratory failure, unspecified whether with hypoxia or hypercapnia; I13.2 Hypertensive heart and chronic kidney disease with heart failure and with stage 5 chronic kidney disease, or end stage renal disease; E44.1 Mild protein-calorie malnutrition; E83.39 Other disorders of phosphorus metabolism; E87.1 Hypo-osmolality and hyponatremia; D63.1 Anemia in chronic kidney disease; K29.81 Duodenitis with bleeding; N18.6 End stage renal disease; E11.22 Type 2 diabetes mellitus with diabetic chronic kidney disease; E87.8 Other disorders of electrolyte and fluid balance, not elsewhere classified; K92.1 Melena; D50.0 Iron deficiency anemia secondary to blood loss (chronic); D53.9 Nutritional anemia, unspecified; I25.10 Atherosclerotic heart disease of native coronary artery without angina pectoris; K76.0 Fatty (change of) liver, not elsewhere classified; I48.0 Paroxysmal atrial fibrillation; Z20.822 Contact with and (suspected) exposure to COVID-19; I50.9 Heart failure, unspecified; I48.20 Chronic atrial fibrillation, unspecified; E78.5 Hyperlipidemia, unspecified; K21.9 Gastro-esophageal reflux disease without esophagitis; K74.60 Unspecified cirrhosis of liver; E53.8 Deficiency of other specified B group vitamins; N40.0 Benign prostatic hyperplasia without lower urinary tract symptoms; F10.20 Alcohol dependence, uncomplicated; Z68.23 Body mass index [BMI] 23.0-23.9, adult; Z99.2 Dependence on renal dialysis; Z88.8 Allergy status to other drugs, medicaments and biological substances; Z87.11 Personal history of peptic ulcer disease; Z79.01 Long term (current) use of anticoagulants; Z79.899 Other long term (current) drug therapy; Z87.19 Personal history of other diseases of the digestive system
CPT/HCPCS: 36415; 36573; 71045; 74176; 76700; 80048; 80053; 80061; 80076; 80305; 80320; 81003; 82248; 82550; 82553; 82962; 83036; 83735; 83880; 84439; 84443; 84484; 85014; 85018; 85025; 85027; 85379; 86705; 86709; 86803; 86850; 86900; 87340; 87426; 88305; 93005; 93306; 99291; C1725; C1769; C9113; J0282; J1815; J2354; J2405; J2765; J3490; J7030; J7050; J7060; G0480

== ENCOUNTER 2022-12-09 18:31 | Emergency (ER) | payer MEDICAID, OTHER ==
[~2022-12-09] VITALS: Ht 172.7 cm; Wt 64.0 kg
[2022-12-09 18:43] VITALS: O2SAT 96
[2022-12-09] MEDS ORDERED: ONDANSETRON HCL 4MG/2ML INJ IV STA (19:32)
[2022-12-09] MEDS ORDERED: SODIUM CHLORIDE 0.9% 1,000 ML IV ONE (19:45)
[2022-12-09 19:54] LABS: HEMATOCRIT. 29.4 % (42.0-52.0); HEMOGLOBIN. 10.4 g/dL (14.0-18.0); MEAN CORPUSCULAR HEMOGLOBIN 35.7 pg (28.0-32.0); MEAN CORPUSCULAR VOLUME 101.2 fL (80.0-94.0); MEAN PLATELET VOLUME 6.4 fl (7.4-10.4); PLATELET 197 x1000/uL (130-400); RED CELL DISTRIBUTION WIDTH 14.1 % (11.6-14.6)
[2022-12-09 20:03] LABS: CHLORIDE 60 mEq/L (98-107)
[2022-12-09 20:17] LABS: PARTIAL THROMBOPLASTIN TIME 28.7 sec (23.4-31.0); PROTHROMBIN TIME 10.8 sec (9.6-11.0)
[2022-12-09] MEDS ORDERED: INSULIN REGULAR (DRIP) 100 UNITS in SODIUM CHLORIDE 0.9% 99 ML IV SCH (21:00)
[2022-12-09] MEDS ORDERED: POTASSIUM CHLORIDE 20MEQ TABLET SR PO ONE (21:00)
[2022-12-09 21:03] LABS: PLATELET ESTIMATE NORMAL
[2022-12-09] MEDS ORDERED: INSULIN REGULAR 100U/100ML PMX 100 ML IV SCH (21:13)
[2022-12-09] MEDS ORDERED: INSULIN REGULAR (HUMULIN R) 300UNITS/3ML VIAL IV ONE (21:30)
[2022-12-09 21:50] LABS: CHLORIDE 61 mEq/L (98-107)
[2022-12-09 21:51] LABS: BG BASE EXCESS 8.7 mmol/L (-2.0-2.0); BG CARBOXYHEMOGLOBIN 0.4 % (0.5-1.5); BG DEOXYHEMOGLOBIN 6.2 % (0.0-5.0); BG FRACTION INSPIRED OXYGEN 21; BG HCO3 ACT 31.3 mmol/L (22.0-26.0); BG METHEMOGLOBIN 0.3 % (0.0-1.5); BG OXYGEN SATURATION 93.8 % (92.0-98.5); BG OXYHEMOGLOBIN 93.1 % (94.0-97.0); BG PCO2 35.9 mmHg (35.0-45.0); BG PH 7.559 (7.350-7.450); BG PO2 74.1 mmHg (75.0-100.0); BG SAMPLE SITE RIGHT RADIAL; BG TOTAL HEMOGLOBIN 10.8 g/dL (12.0-18.0); BG VENT MODE ROOM AIR
[2022-12-09] MEDS ORDERED: POTASSIUM CHLORIDE 20MEQ/PACKET PO ONE (22:15)
[2022-12-09] MEDS ORDERED: INSULIN REGULAR (HUMULIN R) 300UNITS/3ML VIAL IV NR (23:00)
[2022-12-09] MEDS ORDERED: ONDANSETRON HCL 4MG/2ML INJ IV NR (23:00)
[2022-12-09] MEDS ORDERED: POTASSIUM CHLORIDE 20MEQ/PACKET PO NR (23:00)
[2022-12-09] MEDS ORDERED: POTASSIUM CHLORIDE 20MEQ TABLET SR PO NR (23:15)
[2022-12-09 23:30] VITALS: BP 160/94; PULSE 81; RESP 18; TEMP 98.1
== END 2022-12-10 00:03 | disposition short-term general hospital (02) ==
LOC: ER 18:31
DX: R11.10 Vomiting, unspecified (principal); R53.1 Weakness; I12.0 Hypertensive chronic kidney disease with stage 5 chronic kidney disease or end stage renal disease; E11.22 Type 2 diabetes mellitus with diabetic chronic kidney disease; N18.6 End stage renal disease; Z99.2 Dependence on renal dialysis
CPT/HCPCS: 99285; 96374; 71045; 96375; 82010; 82962; 83690; 85025; 85610; 85730; 86850; 86900; 86901; 36415; 82805; 82375; 36600; 80053; J1815; J2405; J7050; J7030; 99284